=== PATIENT | female | born 1995 | race American Indian/Alaskan Native ===

== ENCOUNTER 2018-08-23 17:11 | Inpatient (IN) | payer MEDICAID ==
[2018-08-23] MEDS ORDERED: LACTATED RINGERS 500 ML IV ONE (17:43)
[2018-08-23 19:42] LABS: Hematocrit 31.6 % (30.3-42.9); Hemoglobin 10.5 gm/dl (10.1-14.3); Mean Corpuscular HGB Conc 33 % (30-34); Mean Corpuscular Volume 84 fl (79-97); Platelet Count 234 K/mm3 (140-440); Red Blood Count 3.77 M/mm3 (3.65-5.03); Red Cell Distribution Width 18.3 % (13.2-15.2)
[2018-08-23 19:57] LABS: Alanine Aminotransferase 25 units/L (7-56); Uric Acid 4.7 mg/dL (3.5-7.6)
[2018-08-23 19:59] LABS: Bilirubin,Urine NEG (Negative); Blood,Urine NEG (Negative); Color,Urine Yellow (Yellow); Mucus,Urine 3+ /HPF
--- NOTE | 2018-08-23 21:57 | Ultrasound Report ---
FINAL REPORT EXAM: US OB LIMITED HISTORY: NRNST, CYNTHIA TECHNIQUE: Limited real-time sonography was performed of the gravid uterus and images are submitted for interpretation. PRIORS: None. FINDINGS: There is a single fetus in the uterus in a cephalic presentation. Detailed anatomic survey was not pe rformed. The placenta is posterior and the os is clear. The amniotic fluid index is normal at 7.9 cm. The heart is beating at a rate of 160 beats per minute. IMPRESSION: Cephalic presentation. Normal amniotic fluid index.
--- NOTE | 2018-08-23 22:00 | Ultrasound Report ---
FINAL REPORT EXAM: US OB BPP WO NON-STRESS HISTORY: NRNST TECHNIQUE: Real-time sonography was performed of the gravid uterus for biophysical profile and image s are submitted for interpretation. PRIORS: None. FINDINGS: Biophysical profile: Breathin Movement: 2 Tone: 2 Fluid volume: 2 IMPRESSION: Normal biophysical profile, 02/07
[2018-08-23] MEDS ORDERED: MINERAL OIL PO PRN (22:53)
[2018-08-23] MEDS ORDERED: AMPICILLIN/NS 2 GM/100 ML 2 GM/100 ML BAG IV ONE (22:53)
[2018-08-23] MEDS ORDERED: XYLOCAINE 2% INFILTRATI ONE (22:53)
[2018-08-23] MEDS ORDERED: BRETHINE SUB-Q PRN (22:53)
[2018-08-23] MEDS ORDERED: BRETHINE IVP PRN (22:53)
[2018-08-23] MEDS ORDERED: CERVIDIL VG ONE (22:53)
[2018-08-23] MEDS ORDERED: LACTATED RINGERS 1,000 ML IV SCH (23:00)
[2018-08-23] MEDS ORDERED: PITOCin/NS 20 UNIT/1000ML DRIP 20 UNITS/1,000 ML BAG IV SCH (23:00)
[2018-08-23] MEDS ORDERED: MAGNESIUM SULFATE 40GM/1000ML 40 GM/1,000 ML BAG IV SCH (23:45)
--- NOTE | 2018-08-24 00:20 | History and Physical Report ---
History of Present Illness Date of examination: 08/24/18 Chief complaint: Preeclampsia History of present illness: This 23yo female presented to the office today for her routine OB visit. Her B P's were noted to be 140-150/90 with 3+ proteinuria. She was sent to triage for evaluation where she had elevated BP and a fht's deceleration, she's admitted now for induction for preeclampsia Past History : 1 Past Medical History: Reviewed history from 07/25/2018 and no changes required: none Past Surgical History: Reviewed history from 07/25/2018 and no changes required: breast reduction (2009) shoulder surgery (2010) Past Medical History Abnormal PAP: negative Social Hx: former smoker former THC use Single Works as personal injury attorney Genetic History Congenital Heart Defect: Mom: no Dad: no Yamile Disease: Mom: no Dad: no Thalassemia Mom: no Dad: no Neural Tube Defect Mom: no Dad: no Down's Syndrome Mom: no Dad: no Moreno-Sachs Mom: no Dad: no Sickle Cell Disease/Trait Mom: no Dad: no Hemophilia Mom: no Dad: no Muscular Dystrophy Mom: no Dad: no Cystic Fibrosis Mom: no Dad: no [place]ka Chorea Mom: no Dad: no Mental Retardation Mom: no Dad: no Fragile X Mom: no Dad: no Other Genetic/Chromosomal Disorder Mom: no Dad: no Child w/other defect Mom: no Dad: no Enviromental Exposures Xray Exposure: no Medication, drug, or alcohol use since LMP: no Chemical/Other Exposure: no Exposure to Cat Liter: no Hx of Parvovirus (Fifth Disease): no Occupational Exposure to Children: none Active Medications (reviewed today): None Current Allergies (reviewed today): * LATEX (Critical) Past History - Obstetrical History Expected Date of Delivery: 09/04/18 Actual Gestation: 38 Week(s) 3 Day(s) : 1 Medications and Allergies Allergies Allergy/AdvReac Type Severity Reaction Status Date / Time Latex, Natural Rubber AdvReac Severe Swelling Verified 08/23/18 17:39 nut - unspecified AdvReac Severe Swelling Verified 08/23/18 17:43 Active Meds: Active Medications Ephedrine Sulfate (Ephedrine Sulfate) 10 mg IV Q2M PRN PRN Reason: Hypotension Ampicillin Sodium (Ampicillin/Ns 1 Gm/50 Ml) 1 gm in 50 mls @ 100 mls/hr IV Q4HR CATINA; Protocol Oxytocin/Sodium Chloride (Pitocin/Ns 20 Unit/1000ml Drip) 20 units in 1,000 mls @ 125 mls/hr IV DIRECT CATINA Lactated Ringer's (Lactated Ringers) 1,000 mls @ 125 mls/hr IV DIRECT [place] Magnesium Sulfate (Magnesium Sulfate 40gm/1000ml) 40 gm in 1,000 mls @ 50 mls/hr IV DIRECT CATINA Mineral Oil (Mineral Oil) 30 ml PO QHS PRN PRN Reason: Constipation Terbutaline Sulfate (Brethine) 0.25 mg SUB-Q ONCE PRN PRN Reason: Hyperstimulation/Hypertonicity Terbutaline Sulfate (Brethine) 0.25 mg IVP ONCE PRN PRN Reason: Hyperstimulation/Hypertonicity Review of Systems All systems: negative - Vital Signs Vital signs: Vital Signs Pulse BP 72 130/78 08/23/18 17:58 08/23/18 17:58 Temp Pulse Resp BP Pulse Ox 86 20 179/83 08/23/18 22:13 08/23/18 17:59 08/23/18 22:13 - Physical Exam Breasts: Positive: deferred Cardiovascular: Regular rate Lungs: Positive: Normal air movement Abdomen: Positive: normal appearance, soft. Negative: tenderness Extremities: Positive: edema (trace) Deep Tendon Reflex Grade: Normal +2 - Obstetrical FHR: category 1 Uterine Contraction Monitor Mode: External Cervical Dilatation: 0 (per Boris Van) Cervical Effacement Percentage: 0 station: -3 Uterine Contraction Pattern: Absent Results Result Diagrams: 08/23/18 17:20 08/23/18 17:20 Abnormal lab results 08/23/18 08/23/18 08/23/18 Range/Units 17:20 17:20 17:20 RDW 18.3 H (13.2-15.2) % Creatinine 0.4 L (0.7-1.2) mg/dL Lactate Dehydrogenase 215 H (91-180) units/L Urine WBC (Auto) 22.0 H (0.0-6.0) /HPF All other labs normal. Ultrasound: report reviewed Assessment and Plan - Patient Problems (1) 38 weeks gestation of Current Visit: Yes Status: Acute (2) Pre-eclampsia Current Visit: Yes Status: Acute Plan to address problem: Patient was given for diagnosis. Preeclampsia with risks was explained. She was informed of the need for induction. Typical 3 day serial induction was discussed. Cervidil was explained. She is aware that she may require delivery for failed induction or other obstetric reasons. She is also aware that she will require magnesium sulfate prophylaxis to decrease her probability for seizure activity due to preeclampsia. Questions were encouraged and answer ed, she voiced understanding and agrees with the plan of care (3) Group B Streptococcus carrier, antepartum Current Visit: Yes Status: Acute
[2018-08-24] MEDS ORDERED: BICITRA PO ONE ×2 (02:56→18:19)
[2018-08-24] MEDS ORDERED: AMPICILLIN/NS 1 GM/50 ML 1 GM/50 ML BAG IV SCH (03:04)
[2018-08-24] MEDS ORDERED: FLAGYL PO ONE (10:00)
[2018-08-24] MEDS: LACTATED RINGERS 1,000 ML IV SCH ×2 (10:22→18:24)
[2018-08-24 11:36] LABS: Amphetamine Screen,Urine PRESUMPTIVE NEGATIVE; Benzodiazepines Screen,Urine PRESUMPTIVE NEGATIVE; Cannabinoid Screen,Urine PRESUMPTIVE NEGATIVE; Cocaine Screen,Urine PRESUMPTIVE NEGATIVE; Methadone Screen,Urine PRESUMPTIVE NEGATIVE; Opiate Screen,Urine PRESUMPTIVE NEGATIVE
[2018-08-24 11:37] LABS: Bacteria,Urine 1+ /HPF (Negative); Bilirubin,Urine NEG (Negative); Blood,Urine NEG (Negative); Color,Urine Yellow (Yellow); Mucus,Urine FEW /HPF; Urobilinogen,Urine < 2.0 mg/dL (<2.0)
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
--- NOTE | 2018-08-24 16:08 | Anesthesia Consultation ---
Anesthesia Consult and Med Hx Date of service: 08/24/18 - Airway Anesthetic Teeth Evaluation: Good ROM Head & Neck: Adequate Mental/Hyoid Distance: Adequate Mallampati Class: Class II Intubation Access Assessment: Probably Good - Pre-Operative Health Status ASA Pre-Surgery Classification: ASA3 Proposed Anesthetic Plan: Epidural, Spinal - Pulmonary Hx Asthma: No COPD: No Hx Pneumonia: No - Cardiovascular System Hx Hypertension: Yes (PIH) - Central Nervous System Hx Seizures: No Hx Psychiatric Problems: Yes (PTSD, anxiety) - Endocrine Hx Renal Disease: No Hx End Stage Renal Disease: No Hx Hypothyroidism: No Hx Hyperthyroidism: No - Hematic Hx Anemia: Yes Hx Sickle Cell Disease: No - Other Systems Hx Alcohol Use: No Hx Obesity: Yes (BMI 38) - Additional Comments Anesthesia Medical History Comments: Elective c/section
[2018-08-24] MEDS ORDERED: PHENERGAN PO PRN (16:11)
[2018-08-24] MEDS ORDERED: PHENERGAN PR PRN (16:11)
[2018-08-24] MEDS ORDERED: ZOFRAN IV PRN (16:11)
[2018-08-24] MEDS ORDERED: NARCAN 0.4 MG/1 ML IV PRN ×2 (16:11→20:35)
[2018-08-24] MEDS ORDERED: BENADRYL IV PRN (16:11)
[2018-08-24] MEDS ORDERED: DILAUDID IV PRN ×2 (16:11)
--- NOTE | 2018-08-24 16:11 | Anesthesia Day of Surgery ---
Anesthesia Day of Surgery - Day of Surgery Patient Examined: Yes Patient H&P Reviewed: Yes Patient is NPO: Yes
[2018-08-24] MEDS ORDERED: SENSORCAINE/DEXTR 0.75-8.25% INFILTRATI ONE (16:43)
[2018-08-24] MEDS ORDERED: LACTATED RINGERS 0 ML ONE (16:43)
[2018-08-24] MEDS ORDERED: SODIUM CHLORIDE FLUSH SYRINGE 10 ML IV SCH (17:00)
[2018-08-24] MEDS ORDERED: REGLAN IV ONE (18:19)
[2018-08-24] MEDS ORDERED: PEPCID IV ONE (18:19)
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
--- NOTE | 2018-08-24 18:36 | Event Note ---
Date: 08/24/18 INFORMED BY SHANIQUA TOURE THAT PT IS REFUSING TO HAVE MONITORING AT THIS TIME. SHE WAS ADVISED TO DOCUMENT AND THIS WAS ACKNOWLEDGED BY PROVIDER. PREVIOUSLY THE TRACING HAS BEEN CAT I UP TO THIS POINT.
[2018-08-24] MEDS ORDERED: ANCEF/STERILE WATER 2 GM/20 ML 2 GM/20 ML SYRINGE IV NR (19:00)
[2018-08-24] MEDS ORDERED: PITOCin/NS 20 UNIT/1000ML DRIP 20 UNITS/1,000 ML BAG IV SCH ×2 (19:00→21:00)
[2018-08-24] MEDS ORDERED: LACTATED RINGERS 1,000 ML IV SCH (19:00)
[2018-08-24] MEDS ORDERED: WATER FOR IRRIG STERILE IR ONE (19:30)
[2018-08-24] MEDS ORDERED: NACL 0.9% IR ONE (19:30)
[2018-08-24] MEDS ORDERED: ZOFRAN ONE (19:45)
[2018-08-24] MEDS ORDERED: NEO SYNEPHRINE/NS Syringe(OR USE) IV ONE ×2 (19:53→20:06)
[2018-08-24] MEDS ORDERED: VERSED ONE (19:55)
[2018-08-24] MEDS ORDERED: ASTRAMORPH PF 10MG/10ML ONE (20:02)
[2018-08-24] MEDS ORDERED: TORADOL ONE (20:18)
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
[2018-08-24] MEDS ORDERED: TUCKS PAD TP PRN (20:35)
[2018-08-24] MEDS ORDERED: LANSINOH TP PRN (20:35)
[2018-08-24] MEDS ORDERED: MYLICON PO PRN (20:35)
[2018-08-24] MEDS ORDERED: ANCEF/NS 1 GM/50 ML 1 GM/50 ML BAG IV SCH (21:00)
[2018-08-24] MEDS ORDERED: D5LR 1,000 ML IV SCH (21:00)
--- NOTE | 2018-08-24 21:54 | Event Note ---
Date: 08/24/18 BPs persistently with systolics in the 160s will start magnesium at this time and closely monitor.
[2018-08-24] MEDS ORDERED: MAGNESIUM SULFATE 4GM/100ML 4 GM/100 ML BAG IV ONE (21:55)
[2018-08-24] MEDS ORDERED: MAGNESIUM SULFATE 40GM/1000ML 40 GM/1,000 ML BAG IV SCH (22:00)
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
--- NOTE | 2018-08-25 09:21 | Event Note ---
Date: 08/25/18 Patient in bed, no BAIRD, no visual problems, no RUQ. Patient's mother and bedside with baby. She's alert and appropriately responsive. VSS. Questions encouraged and answered. No requests at this time.
[2018-08-25] MEDS ORDERED: FEOSOL PO SCH (10:00)
[2018-08-25] MEDS: NORCO 5/325 PO PRN ×3 (11:13→21:18)
[2018-08-25 12:16] LABS: Hemoglobin 9.4 gm/dl (10.1-14.3)
--- NOTE | 2018-08-25 16:41 | XRay Report ---
FINAL REPORT EXAM: XR CHEST 1V AP HISTORY: shortness of breath TECHNIQUE: Frontal chest x-ray. PRIORS: None currently available. FINDINGS: Cardiac silhouette is within normal limits. There is no effusion. There is no pneumothorax. There is no consolidation. There are no suspicious osseous lesions. IMPRESSION: No acute cardiopulmonary findings.
[2018-08-25] MEDS ORDERED: BOOSTRIX IM ONE (20:36)
[2018-08-26] MEDS: NORCO 5/325 PO PRN ×3 (01:27→18:40)
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
[2018-08-27] MEDS ORDERED: NORMODYNE PO SCH (10:00)
[2018-08-27] MEDS: NORCO 5/325 PO PRN (13:29)
[2018-08-27 17:59] VITALS: BP 107/49
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
== END 2018-08-27 19:46 | disposition home or self-care (01) | DRG 765 ==
LOC: TRG 17:11 → LD 08-24 01:08 → APU 08-24 19:41 → LD 08-24 22:08 → OB 08-25 19:46
PROVIDERS: ADMIT Obstetrics & Gynecology; ATTEND Obstetrics & Gynecology
PROC: 10D00Z1 Extraction of Products of Conception, Low, Open Approach (ICD-10-PCS; principal; 2018-08-24)
PROC: 3E0P7VZ Introduction of Hormone into Female Reproductive, Via Natural or Artificial Opening (ICD-10-PCS; 2018-08-24)
PROC: 3E0234Z Introduction of Serum, Toxoid and Vaccine into Muscle, Percutaneous Approach (ICD-10-PCS; 2018-08-25)
DX: O14.94 Unspecified pre-eclampsia, complicating childbirth (principal); D62 Acute posthemorrhagic anemia; R71.0 Precipitous drop in hematocrit; O69.81X0 Labor and delivery complicated by cord around neck, without compression, not applicable or unspecified; O99.344 Other mental disorders complicating childbirth; O9A.42 Sexual abuse complicating childbirth; O99.214 Obesity complicating childbirth; E66.9 Obesity, unspecified; Z37.0 Single live birth; Z91.040 Latex allergy status; Z91.018 Allergy to other foods; Z23 Encounter for immunization; Z3A.38 38 weeks gestation of pregnancy
CPT/HCPCS: 36415; 59200; 71045; 76815; 76819; 80307; 81001; 82565; 83615; 83735; 84450; 84460; 84550; 85014; 85018; 85027; 86592; 86850; 86900; 86901; 88307; G0378; A6250; C9250; J0290; J0690; J1170; J1885; J2250; J2274; J2370; J2405; J2590; J2765; J3475; J7120; J7121